=== PATIENT | female | born 1940 | race Caucasian/White ===

== ENCOUNTER 2016-09-12 19:28 | Emergency (ER) | payer MEDICARE | END 2016-09-12 21:40 | disposition home or self-care (01) | LOC: ER1 19:28 | DX: S61.452A Open bite of left hand, initial encounter (principal); S61.451A Open bite of right hand, initial encounter; L03.012 Cellulitis of left finger; L03.011 Cellulitis of right finger; Z87.891 Personal history of nicotine dependence; Z88.8 Allergy status to other drugs, medicaments and biological substances; X58.XXXA Exposure to other specified factors, initial encounter | CPT/HCPCS: 90471; 90715; 99283 ==

== ENCOUNTER 2016-09-13 17:04 | Emergency (ER) | payer MEDICARE | END 2016-09-13 17:50 | disposition home or self-care (01) | LOC: ER1 17:04 | DX: L03.90 Cellulitis, unspecified (principal); W53.01XD Bitten by mouse, subsequent encounter | CPT/HCPCS: 99282 ==

== ENCOUNTER → 2020-04-27 | Outpatient (CLI) | payer MEDICARE, OTHER ==
[~2020-04-27] MED LIST: AUGMENTIN250 MG/5 M PO; PRELONE SY15 MG/5 ML PO; PROAIR HFA8.5 GM INH
== END ==
LOC: CT 12:32
DX: R06.00 Dyspnea, unspecified (principal); R91.8 Other nonspecific abnormal finding of lung field
CPT/HCPCS: 36415; 71270; 82565; Q9962; Q9967

== ENCOUNTER → 2020-06-02 | Outpatient (CLI) | payer MEDICARE, OTHER | LOC: HEART 5 14:15 | DX: J44.9 Chronic obstructive pulmonary disease, unspecified (principal) | CPT/HCPCS: 94060; 94729 ==

== ENCOUNTER → 2020-07-15 | Outpatient (CLI) | payer MEDICARE | LOC: MAMO 13:30 | DX: R22.2 Localized swelling, mass and lump, trunk (principal) | CPT/HCPCS: 77066; G0279 ==

== ENCOUNTER → 2020-09-12 | Outpatient (CLI) | payer MEDICARE | LOC: CT 11:00 | DX: R91.8 Other nonspecific abnormal finding of lung field (principal) | CPT/HCPCS: 71250 ==

== ENCOUNTER → 2020-09-29 | Outpatient (CLI) | payer MEDICARE | LOC: KOH-I 15:00 | DX: S22.000A Wedge compression fracture of unspecified thoracic vertebra, initial encounter for closed fracture (principal); S22.060D Wedge compression fracture of T7-T8 vertebra, subsequent encounter for fracture with routine healing; M47.814 Spondylosis without myelopathy or radiculopathy, thoracic region | CPT/HCPCS: 72146 ==

== ENCOUNTER 2021-07-03 12:30 | Inpatient (IN) | payer MEDICARE, MEDICAID ==
[~2021-07-03] VITALS: Ht 165.1 cm; Wt 49.0 kg
[2021-07-03 15:14] LABS: HEMOGLOBIN 14.9 gm/dl (12.3-15.3); RED BLOOD COUNT 4.93 M/UL (4.00-5.10); WHITE BLOOD COUNT 14.1 K/UL (4.5-11.0)
[2021-07-03 15:22] LABS: BUN/CREATININE RATIO 30 (0-10)
--- NOTE | 2021-07-03 19:52 | NUR ---
PT DOESNT HAVE MEDICATION BOTTLES WITH HER. PHARMACY TO [facility] MED REC IN AM. WILL CONTINUE TO MONITOR.
[2021-07-04 04:17] LABS: BUN/CREATININE RATIO 27 (0-10)
[2021-07-04 04:24] LABS: HEMOGLOBIN 14.9 gm/dl (12.3-15.3); RED BLOOD COUNT 4.93 M/UL (4.00-5.10); WHITE BLOOD COUNT 12.2 K/UL (4.5-11.0)
[2021-07-04] MEDS ORDERED: SYMBICORT 80-10.2 GM INH (11:34)
[2021-07-04] MEDS ORDERED: PROVENTIL HFA6.7 GM INH (11:34)
[2021-07-04] MEDS ORDERED: CLEARLAX119 GM PO (11:35)
[2021-07-04] MEDS ORDERED: COZAAR 25MG TAB25 MG PO (11:35)
--- NOTE | 2021-07-04 21:12 | NUR ---
PT'S HEART RATE INCREASED TO THE 180'S. NOTIFIED DR ABDUL AND RECIEVED ORDERS. ADMINISTERED MEDICATION ORDERED. WILL CONTINUE TO MONITOR.
--- NOTE | 2021-07-04 22:33 | NUR ---
CALLED RESULTS OF CARDIAC MARKERS TO DR SHAFER. RECIEVED NO NEW ORDERS. PT RESTING QUIETLY, FREE OF DISTRESS. WILL CONTINUE TO MONITOR.
[2021-07-05 03:06] LABS: HEMOGLOBIN 13.1 gm/dl (12.3-15.3); WHITE BLOOD COUNT 11.5 K/UL (4.5-11.0)
[2021-07-05 03:16] LABS: RED BLOOD COUNT 4.24 M/UL (4.00-5.10)
[2021-07-05 03:24] LABS: BUN/CREATININE RATIO 36 (0-10)
[2021-07-06 03:35] LABS: HEMOGLOBIN 12.5 gm/dl (12.3-15.3); RED BLOOD COUNT 4.14 M/UL (4.00-5.10); WHITE BLOOD COUNT 11.3 K/UL (4.5-11.0)
[2021-07-06 04:34] LABS: BUN/CREATININE RATIO 27 (0-10)
[2021-07-07 03:15] LABS: HEMOGLOBIN 12.2 gm/dl (12.3-15.3); RED BLOOD COUNT 4.01 M/UL (4.00-5.10); WHITE BLOOD COUNT 9.4 K/UL (4.5-11.0)
[2021-07-07 03:40] LABS: BUN/CREATININE RATIO 35 (0-10)
--- NOTE | 2021-07-07 08:41 | NUR ---
PT ROOM AIR SAT 84% RESTING.
--- NOTE | 2021-07-07 08:42 | NUR ---
PT O2 SAT 93% ON OS@2L NC.
[2021-07-07] MEDS ORDERED: COZAAR 25MG TAB25 MG PO (09:27)
[2021-07-07] MEDS ORDERED: PERCOCET 5/325 T1 EA PO (09:27)
[2021-07-07] MEDS ORDERED: DOXYCYCLINE HY100 MG PO (09:27)
[2021-07-07] MEDS ORDERED: ELIQUIS 2.5 MG2.5 MG PO (09:27)
[2021-07-07] MEDS ORDERED: LIDOCAINE PAIN1 EACH TP (09:27)
[2021-07-07] MEDS ORDERED: CARDIZEM 30MG T30 MG PO (09:27)
[2021-07-07] MEDS ORDERED: AMOX TR-K CLV1 EAC4 PO (09:27)
[2021-07-07] MEDS ORDERED: AMIODARONE HCL400 MG PO (09:30)
[2021-07-07] MEDS ORDERED: AMIODARONE HCL200 MG PO (09:30)
== END 2021-07-07 15:57 | DRG 871 ==
LOC: ER1 12:30 → M/S 18:03 → CDU 18:03 → M/S 19:32
PROVIDERS: Family Medicine; ADMIT Internal Medicine
PROC: 3E03329 Introduction of Other Anti-infective into Peripheral Vein, Percutaneous Approach (ICD-10-PCS; principal; 2021-07-03)
PROC: B24BZZZ Ultrasonography of Heart with Aorta (ICD-10-PCS; 2021-07-05)
DX: A41.9 Sepsis, unspecified organism (principal); J69.0 Pneumonitis due to inhalation of food and vomit; J18.9 Pneumonia, unspecified organism; J96.01 Acute respiratory failure with hypoxia; S32.028A Other fracture of second lumbar vertebra, initial encounter for closed fracture; E87.1 Hypo-osmolality and hyponatremia; E44.0 Moderate protein-calorie malnutrition; Z68.1 Body mass index [BMI] 19.9 or less, adult; Z20.822 Contact with and (suspected) exposure to COVID-19; M54.59 Other low back pain; I10 Essential (primary) hypertension; G89.29 Other chronic pain; J43.9 Emphysema, unspecified; R65.20 Severe sepsis without septic shock; F03.90 Unspecified dementia, unspecified severity, without behavioral disturbance, psychotic disturbance, mood disturbance, and anxiety; F11.90 Opioid use, unspecified, uncomplicated; R13.10 Dysphagia, unspecified; Z66 Do not resuscitate; I48.0 Paroxysmal atrial fibrillation; W18.39XA Other fall on same level, initial encounter; K59.00 Constipation, unspecified; Z98.890 Other specified postprocedural states; Z84.89 Family history of other specified conditions; Z87.891 Personal history of nicotine dependence; Z79.899 Other long term (current) drug therapy; Y92.099 Unspecified place in other non-institutional residence as the place of occurrence of the external cause
CPT/HCPCS: ECHO; 0240U; 36415; 36600; 71045; 72131; 80048; 80053; 81001; 82550; 82553; 82803; 83735; 84132; 84439; 84443; 84484; 85025; 85027; 87040; 92526; 92610; 93005; 93306; 94640; 94664; 94760; 96374; 96375; 97110; 97110-GP-CQ; 97162; 97166; 97530-GP-CQ; 99285; J1650; J2270; J2543; J7030; U0002